=== PATIENT | female | born 1950 | race Caucasian/White ===

== ENCOUNTER → 2016-11-12 | Outpatient (CLI) | payer OTHER, MEDICARE | LOC: CIMAGING 14:56 | PROVIDERS: ATTEND Internal Medicine | DX: D25.9 Leiomyoma of uterus, unspecified (principal); K82.4 Cholesterolosis of gallbladder ==

== ENCOUNTER → 2017-01-14 | Outpatient (CLI) | payer OTHER, MEDICARE | LOC: FIMAGING 14:01 | PROVIDERS: ATTEND Internal Medicine | DX: Z12.31 Encounter for screening mammogram for malignant neoplasm of breast (principal); M81.0 Age-related osteoporosis without current pathological fracture | CPT/HCPCS: G0202 ==

== ENCOUNTER → 2017-02-23 | Outpatient (CLI) | payer OTHER, MEDICARE | LOC: FCPNEURO 23:06 | PROVIDERS: ATTEND Internal Medicine Sleep Medicine | DX: G47.33 Obstructive sleep apnea (adult) (pediatric) (principal); G47.31 Primary central sleep apnea; G47.36 Sleep related hypoventilation in conditions classified elsewhere ==

== ENCOUNTER → 2017-02-28 | Outpatient (CLI) | payer OTHER, MEDICARE ==
[~2017-02-28] MED LIST: IOPAMIDOL (ISOVUE-300) 100 ML BTL ONE
== END ==
LOC: FIMAGING 13:41
PROVIDERS: ATTEND Internal Medicine
DX: K44.9 Diaphragmatic hernia without obstruction or gangrene (principal); R91.1 Solitary pulmonary nodule
CPT/HCPCS: 74160; Q9967

== ENCOUNTER → 2017-06-03 | Outpatient (CLI) | payer OTHER, MEDICARE | LOC: FIMAGING 08:37 | PROVIDERS: ATTEND Internal Medicine | DX: R91.1 Solitary pulmonary nodule (principal) ==

== ENCOUNTER 2017-08-16 12:02 | Day surgery (SDC) | payer OTHER, MEDICARE ==
[2017-08-16] MEDS ORDERED: MIDAZOLAM 2 MG/2 ML VIAL IVP ONE ×2 (12:19→14:34)
--- NOTE | 2017-08-16 12:19 | PDANEPAE ---
ANE History of Present Illness Parathyroidectomy ANE Past Medical History - Cardiovascular History Hx Hypertension: Yes Hx Arrhythmias: No Hx Chest Pain: No Hx Coronary Artery / Peripheral Vascular Disease: No Hx CHF / Valvular Disease: No Hx Palpitations: No Cardiovascular History Comment: OCCAS BRIEF ARRHYTHMIAS - Pulmonary History Hx COPD: No Hx Asthma/Reactive Airway Disease: No Hx Recent Upper Respiratory Infection: No Hx Oxygen in Use at Home: No Hx Sleep Apnea: Yes Sleep Apnea Screening Result - Last Documented: Positive Pulmonary History Comment: POS BRITTNI - ASV W/O2 @3L. PULMONARY NODULE - Neurologic History Hx Cerebrovascular Accident: No Hx Seizures: No Hx Dementia: No - Endocrine History Hx Diabetes: No Endocrine History Comment: HASHIMOTOS - Renal History Hx Renal Disorders: No - Liver History Hx Hepatic Disorders: No Hepatic History Comment: FATTY LIVER. GB POLYP - Neurological & Psychiatric Hx Hx Neurological and Psychiatric Disorders: Yes Neurological / Psychiatric History Comment: ANXIETY & DEPRESSION - Cancer History Hx Cancer: No - Congenital Disorder History Hx Congenital Disorders: No - GI History Hx Gastrointestinal Disorders: Yes Gastrointestinal History Comment: GERD. HIATAL HERNIA - Other Health History Other Health History: POSITIONAL VERTIGO. PSORIASIS. LEG RASHES AT TIMES. BLAKE LE EDEMA. COLD URTICARIA - HAS HAD IMTIAZ HUGGER IN PAST - Chronic Pain History Chronic Pain: Yes (ARTHRITIS HANDS, TOES, HIP R, LOW BACK) - Surgical History Prior Surgeries: TONSILLECTOMY. D&C X2. CATARACTS ANE Review of Systems Review of systems is: negative Review of Systems: - Exercise capacity METS (RN): 4 METS ANE Patient History - Allergies Allergies/Adverse Reactions: adhesive tape Allergy (Verified 08/15/17 11:40) Rash,WELTS ampicillin [Ampicillin] Allergy (Verified 10/30/11 15:30) Rash butorphanol tartrate [From Stadol] Allergy (Verified 10/30/11 15:30) RESP DEPRESSION lisinopril [From Prinivil] Allergy (Verified 10/30/11 15:30) SWELLING Sulfa (Sulfonamide Antibiotics) Allergy (Verified 10/30/11 15:30) Hives valacyclovir HCl [From Valtrex] Allergy (Verified 10/30/11 15:30) GOMEZ,FEVER - Home Medications Home medications: home medication list seen and reviewed Home Medications: Levothyroxine [Synthroid 100 mcg (RX)] 100 mcg PO DAILY06 10/30/11 [Last Taken 08/16/17 07:00] Venlafaxine HCl [Effexor] 100 mg PO 10/30/11 [Last Taken 08/16/17 07:00] traZODone [traZODONE (RX)] 50 mg PO 10/30/11 [Last Taken 08/15/17] Amlodipine Besylate 08/15/17 [Last Taken 08/16/17 07:00] Flonase Nasal [place] 08/15/17 [Last Taken 08/15/17] Furosemide 08/15/17 [Last Taken 08/15/17] Herbals/Supplements -Info Only 08/15/17 [Last Taken 08/10/17] Metoprolol Succinate 08/15/17 [Last Taken 08/16/17 07:00] Mucinex 08/15/17 [Last Taken 08/15/17] Omeprazole 08/15/17 [Last Taken 08/16/17 07:00] Tylenol 08/15/17 [Last Taken 1 Week Ago ~08/09/17] - NPO status NPO Since - Liquids (Date): 08/16/17 NPO Since - Liquids (Time): 10:00 NPO Since - Solids (Date): 08/15/17 - Anes Hx Anes Hx: awareness under anesthesia - Smoking Hx Smoking Status: Never smoked - Family Anes Hx Family Hx Anesthesia Complications: FATHER ONCE HAD SEIZURE DURING ANESTHESIA ANE Labs/Vital Signs - Labs Result Diagrams: 08/16/17 12:40 - Vital Signs Height: 160.02 cm Weight: 104.326 kg ANE Physical Exam - Airway Neck exam: FROM Mallampati Score: Class 2 Mouth exam: normal dental/mouth exam - Pulmonary Pulmonary: no respiratory distress - Cardiovascular Cardiovascular: regular rate and rhythym - ASA Status ASA Status: III ANE Anesthesia Plan Anesthesia Plan: general endotracheal anesthesia
[2017-08-16] MEDS ORDERED: LIDOCAINE 1% 2 ML INJ ID PRN (12:26)
[2017-08-16] MEDS ORDERED: LR 1,000 ML IV ONE (12:26)
[2017-08-16 12:56] VITALS: PULSE 57
[2017-08-16] MEDS ORDERED: BUPIVACAINE 0.5% 30 ML SDV ONE (12:57)
[2017-08-16] MEDS ORDERED: ONDANSETRON 4 MG/2 ML VIAL ONE (13:49)
[2017-08-16] MEDS ORDERED: PROPOFOL 200 MG/20 ML VIAL ONE (13:49)
[2017-08-16] MEDS ORDERED: fentaNYL 100 MCG/2 ML INJ ONE ×2 (13:49→15:11)
[2017-08-16] MEDS ORDERED: LIDOCAINE 2% 100 MG/5 ML SYR ONE (13:49)
[2017-08-16] MEDS ORDERED: DEXAMETHASONE 4 MG/ML VIAL ONE (13:49)
--- NOTE | 2017-08-16 13:50 | PDHPUP ---
History & Physical Update H&P update statement: This history and physical update is based on an assessment of the patient which was completed after admission or registration (within 24 hours), but prior to the surgery/procedure. H&P update: H&P reviewed & patient examined, no change in patient's condition since H&P completed
[2017-08-16] MEDS ORDERED: ROCURONIUM 50 MG/5 ML VIAL ONE (13:57)
[2017-08-16] MEDS ORDERED: DEXAMETHASONE 4 MG/ML VIAL IVP PRN (14:34)
[2017-08-16] MEDS ORDERED: OXYCODONE/APAP 5/325 TAB PO PRN (14:34)
[2017-08-16] MEDS ORDERED: HYDROmorphONE/DILAUDID 1 MG/ML INJ IVP PRN (14:34)
[2017-08-16] MEDS ORDERED: MEPERIDINE 25 MG/ML SYR IVP PRN (14:34)
[2017-08-16] MEDS ORDERED: ACETAMINOPHEN 500 MG TAB PO PRN (14:34)
[2017-08-16] MEDS ORDERED: NALOXONE HCL 0.4 MG/ML INJ IVP PRN (14:34)
[2017-08-16] MEDS ORDERED: ONDANSETRON 4 MG/2 ML VIAL IVP PRN (14:34)
[2017-08-16] MEDS ORDERED: HYDROCODONE/APAP 5/325 TAB PO PRN (14:34)
[2017-08-16] MEDS ORDERED: PROMETHAZINE HCL 25 MG/ML INJ IVP PRN (14:34)
--- NOTE | 2017-08-16 14:41 | POSTANESTH ---
Post Anesthetic Evaluation Cardiovascular Status: Similar to Pre-Op Cond Respiratory Status: Similar to Pre-op Cond. Level of Consciousness/Mental Status: Can Participate in Eval, Mildly Sleepy, Arousable Pain Control: Inadeq, Add Tx Required Nausea/Vomiting Control: Adequate, Prn Tx Ordered Complications Possibly Related to Anesthesia: None Noted
[2017-08-16] MEDS ORDERED: SUGAMMADEX SODIUM 200 MG/2 ML VIAL IVP ONE (14:56)
[2017-08-16] MEDS: fentaNYL 100 MCG/2 ML INJ IVP PRN ×2 (15:12→15:24)
--- NOTE | 2017-08-16 15:25 | POSTOPPROG ---
Post Op Note Date of Operation: 08/16/17 Surgeon: Yakov Montalvo Anesthesiologist: Dinh Feliz Anesthesia: GET(General Endotracheal) Pre-op Diagnosis: primary hyperparathyroidism Post-op Diagnosis: same Procedure: parathyroidectomy Findings: large left lower neck clinical adenoma Inf/Abcess present in the surg proc area at time of surgery?: No EBL: Minimal Specimen(s): left lower neck parathyroid
[2017-08-16 15:38] VITALS: RESP 14
[2017-08-16 15:48] VITALS: TEMP 98.6
[2017-08-16] MEDS ORDERED: HYDROCODONE/APAP 5/325 TAB ONE (16:01)
[2017-08-16 17:08] VITALS: BP 123/95
[2017-08-16 17:21] VITALS: O2SAT 95
--- NOTE | 2017-08-16 22:59 | GOP ---
[f rep st] OPERATIVE REPORT DATE OF OPERATION: 08/16/2017 SURGEON: Yakov Montalvo MD ANESTHESIA: General. ANESTHESIOLOGIST: Yakov Dubois MD PREOPERATIVE DIAGNOSIS: Primary hyperparathyroidism. POSTOPERATIVE DIAGNOSIS: Primary hyperparathyroidism. PROCEDURE PERFORMED: Parathyroidectomy. FINDINGS: INDICATIONS: A 66-year-old female with symptomatic primary hyperparathyroidism. Preoperative localiz ation studies suggest a left lower neck clinical adenoma. She is undergoing surgical excision at thi s time. Risks and benefits were explained of bleeding, infection, persistent and recurrent hyperpara thyroidism, hypoparathyroidism, recurrent laryngeal nerve injury, need for additional surgical interv ention. All questions were answered. She desires to proceed. DESCRIPTION OF PROCEDURE: After general anesthesia was induced, the neck was then pre-injected with 0.5% Marcaine with epinephrine. A low collar incision was created. The platysma muscle and midline strap muscles were . The nodular left thyroid lobe was elevated up into the operative field . A mass suggested on preoperative ultrasonography was a left lower neck clinical adenoma. This was a firm, 2 cm structure, clinically consistent with an adenoma. This was coursing toward the thoraci c outlet. This was divided back to its feeding vasculature and sent for permanent sectioning. Further neck exploration revealed a completely soft, normal-appearing gland just superior to the recu rrent laryngeal nerve muscle junction in the posterior aspect of the thyroid lobe. The contralateral neck was explored. Two normal-appearing parathyroid glands were identified. The lower pole being t ucked in subcapsular location on the inferior lateral most aspect of the lower thyroid lobe. The upp er pole gland was identified in a mirror image location just superior to the nerve muscle junction. All three of these glands were all tagged with a small hemoclip for future identification purposes. Satisfactory hemostasis was assured throughout bilateral javy neck cavities. Preoperative PTH was 20 6. Five and 10 minute values were 63 and 49. The patient was taken to the recovery room, extubated uneventfully. /[id number]/MODL
== END 2017-08-16 17:27 | disposition home or self-care (01) ==
LOC: FSGY 12:02
PROVIDERS: ATTEND Surgery
PROC: 0GBR0ZX Excision of Parathyroid Gland, Open Approach, Diagnostic (ICD-10-PCS; principal; 2017-08-16 13:15)
DX: E21.0 Primary hyperparathyroidism (principal); D35.1 Benign neoplasm of parathyroid gland; E06.3 Autoimmune thyroiditis; I10 Essential (primary) hypertension; G47.33 Obstructive sleep apnea (adult) (pediatric); K21.9 Gastro-esophageal reflux disease without esophagitis; Z88.0 Allergy status to penicillin; Z88.2 Allergy status to sulfonamides
CPT/HCPCS: J0171; J1100; J2001; J2250; J2405; J2704; J3010

== ENCOUNTER → 2017-12-06 | Outpatient (CLI) | payer OTHER, MEDICARE | LOC: FIMAGING 07:45 | PROVIDERS: ATTEND Internal Medicine | DX: R91.1 Solitary pulmonary nodule (principal) ==

== ENCOUNTER → 2018-12-21 | Outpatient (CLI) | payer OTHER, MEDICARE | LOC: FIMAGING 13:33 ==